=== PATIENT | female | born 1965 | race Caucasian/White ===

== ENCOUNTER 2023-06-15 08:14 | Outpatient (RCR) | payer BC, SELFPAY | END 2023-06-15 23:59 | disposition home or self-care (01) | LOC: RPT 08:14 | PROVIDERS: ATTENDING PHYSICIAN Advanced Practice Midwife; PRIMARYCARE PHYSICIAN Family Medicine | DX: H81.10 Benign paroxysmal vertigo, unspecified ear (principal); R42 Dizziness and giddiness | CPT/HCPCS: 97110; 97162 ==

== ENCOUNTER → 2023-12-07 15:40 | Outpatient (REF) | payer OTHER, SELFPAY | LOC: RCS 15:40 | PROVIDERS: ATTENDING PHYSICIAN Internal Medicine Cardiovascular Disease; FAMILY PHYSICIAN Family Medicine | DX: Z86.79 Personal history of other diseases of the circulatory system (principal); I35.8 Other nonrheumatic aortic valve disorders; R55 Syncope and collapse | CPT/HCPCS: 93306 ==

== ENCOUNTER → 2023-12-09 14:07 | Outpatient (REF) | payer OTHER, SELFPAY | LOC: RCS 14:07 | PROVIDERS: ATTENDING PHYSICIAN Internal Medicine Cardiovascular Disease; FAMILY PHYSICIAN Family Medicine | DX: R55 Syncope and collapse (principal); Z86.79 Personal history of other diseases of the circulatory system; R00.2 Palpitations | CPT/HCPCS: 93017; 93350 ==

== ENCOUNTER → 2024-01-29 07:00 | Outpatient (REF) | payer OTHER, SELFPAY | LOC: MRI 07:00 | PROVIDERS: ATTENDING PHYSICIAN Internal Medicine Cardiovascular Disease | DX: I47.29 Other ventricular tachycardia (principal); R55 Syncope and collapse | CPT/HCPCS: 75561; 75565; A9585 ==

== ENCOUNTER 2024-06-21 06:20 | Day surgery (SDC) | payer OTHER, SELFPAY | END 2024-06-21 08:49 | disposition home or self-care (01) | LOC: GI 06:20 | PROVIDERS: ATTENDING PHYSICIAN Internal Medicine Gastroenterology | DX: Z12.11 Encounter for screening for malignant neoplasm of colon (principal); K64.8 Other hemorrhoids; Q43.8 Other specified congenital malformations of intestine; K63.89 Other specified diseases of intestine; Z83.719 Family history of colon polyps, unspecified | CPT/HCPCS: 45381 ==

== ENCOUNTER → 2024-06-29 12:50 | Outpatient (REF) | payer OTHER, SELFPAY | LOC: RAD 12:50 | PROVIDERS: ATTENDING PHYSICIAN Internal Medicine Gastroenterology; FAMILY PHYSICIAN Family Medicine | DX: K63.9 Disease of intestine, unspecified (principal) | CPT/HCPCS: 74177; Q9967 ==